=== PATIENT | female | born 1990 | race Caucasian/White ===

== ENCOUNTER 2016-05-29 20:29 | Emergency (ER) | payer SELFPAY ==
[~2016-05-29] VITALS: Ht 157.5 cm; Wt 59.0 kg
[2016-05-29] MEDS ORDERED: TdaP Vaccine 0.5ml Syr IM ONE (21:15)
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
[2016-05-29] MEDS ORDERED: IBUPROFEN600 MG ORAL (21:39)
[2016-05-29] MEDS ORDERED: ROBAXIN-750750 MG PO (21:39)
[2016-05-29] MEDS ORDERED: Hydrogen Peroxide 120ml Bottle TOPIC ONE (21:41)
[2016-05-29 22:03] VITALS: BP 114/72
== END 2016-05-29 22:03 | disposition home or self-care (01) ==
LOC: EMR 21:15
DX: S50.311A Abrasion of right elbow, initial encounter (principal); S70.311A Abrasion, right thigh, initial encounter; S80.212A Abrasion, left knee, initial encounter; S80.211A Abrasion, right knee, initial encounter; S80.811A Abrasion, right lower leg, initial encounter; S90.512A Abrasion, left ankle, initial encounter; Z23 Encounter for immunization; V13.4XXA Pedal cycle driver injured in collision with car, pick-up truck or van in traffic accident, initial encounter; Y92.410 Unspecified street and highway as the place of occurrence of the external cause; Y99.8 Other external cause status
CPT/HCPCS: 90471; 90715; 99283